=== PATIENT | male | born 1985 | race Caucasian/White ===

== ENCOUNTER 2025-08-23 06:30 | Day surgery (SDC) | payer OTHER, SELFPAY ==
[2025-08-22 13:59] VITALS: BMI 33.4
[2025-08-23 12:15] VITALS: BMI 33.4
[2025-08-23 12:17] VITALS: BP 129/87
[2025-08-23] MEDS: NORMOSOL-R/PLASMALYTE-A 1000 IV (12:22)
[2025-08-23 17:03] VITALS: BP 105/75; BP 129/87
[2025-08-23 17:15] VITALS: BP 111/79
[2025-08-23 17:30] VITALS: BP 115/81
[2025-08-23 17:45] VITALS: BP 117/69
== END 2025-08-23 18:04 | disposition home or self-care (01) ==
LOC: SDS 06:30
PROVIDERS: ATTENDING PHYSICIAN Surgery; FAMILY PHYSICIAN Student in an Organized Health Care Education/Training Program
DX: K60.30 Anal fistula, unspecified (principal)
CPT/HCPCS: 46275; 46030; 36415; 93005